=== PATIENT | female | born 1960 | race Two or more races ===

== ENCOUNTER 2017-09-16 08:01 | Emergency (ER) | payer OTHER ==
[~2017-09-16] VITALS: Ht 170.2 cm; Wt 113.4 kg
[~2017-09-16 08:01] MED LIST: ADVAIR 2501 DISK W/1 IH; ALBUTEROL17 GM IH; COUMADIN5 MG PO; COZAAR; DIAZEPAM10 MG PO; FOLIC ACID0.4 MG PO; LAXIS; LEVOXIL; METFORMIN; METFORMIN HCL500 MG PO; MICARDIS20 MG PO; MICARDIS80 MG PO; MULTI VITA-BE0.25 MG PO; ORPH100T PO; PERCOCET 5/321 UDTAB PO; PROVENTIL0.5 ML/2.5 IH; SINGULAIR 10MG10 MG PO; SINTROID; ULTRACET PO; [UNRECOGNIZED DRUG - OTHER]; [UNRECOGNIZED DRUG - OTHER]
[2017-09-16] MEDS ORDERED: ULTRAM50 MG PO (11:56)
[2017-09-16] MEDS ORDERED: NORFLEX100MG PO (11:56)
[2017-09-16] MEDS ORDERED: ZITHROMAX TRI-500 MG PO (11:56)
[2017-09-16] MEDS ORDERED: TUSSI PRES-B L120 M1 PO (11:56)
== END 2017-09-16 11:52 | disposition home or self-care (01) ==
LOC: ER 08:01
DX: B34.9 Viral infection, unspecified (principal); J11.1 Influenza due to unidentified influenza virus with other respiratory manifestations

== ENCOUNTER 2017-12-01 07:34 | Emergency (ER) | payer OTHER ==
[~2017-12-01] VITALS: Ht 170.2 cm; Wt 108.9 kg
[~2017-12-01 07:34] MED LIST changes: +NORFLEX100MG PO; +TUSSI PRES-B L120 M1 PO; +ULTRAM50 MG PO; +ZITHROMAX TRI-500 MG PO
== END 2017-12-01 11:29 | disposition home or self-care (01) ==
LOC: ER 07:34
DX: B34.9 Viral infection, unspecified (principal); J45.998 Other asthma

== ENCOUNTER 2018-09-17 08:15 | Inpatient (IN) | payer OTHER ==
[~2018-09-17] VITALS: Ht 167.6 cm; Wt 108.0 kg
--- NOTE | 2018-09-17 08:30 | NUR ---
PTE REFIERE DIFICULTAD RESPIRATORIO SE TRASLA PTE AL AREA DE ASMA Y SE PRESENTA A LA DRA COOLEY, Y SE NOTIFICA A TERAPIA RESPIRATORIA.
--- NOTE | 2018-09-17 08:32 | NUR ---
PACIENTE ALERTA Y ORIENTADA X3. SE ORIENTA SOBRE TX Y PROCEDIMIENTO A REALIZAR Y REFIERE ENTENDER. MIS. TAYLOR ADMINISTRA MEDICAMENTO RADHA ORDEN MEDICA. SE REALIZA MUESTRAS DE LABORATORIO BAJO MEDIDAS ASEPTICAS. CANALIZACION PATENTE Y JOHN DE EDEMA Y ERITEMA. SE MANTIENE BAJO OBSERVACION POR CAMBIOS SIGNIFICATIVOS. PERSONAL DE TERAPIA RESPIRATORIA OFRECE LAS MISMAS Y REALIZA ABG.
== END 2018-09-21 13:57 | disposition home or self-care (01) | DRG 977 ==
LOC: ER 08:15 → MEDJ 18:53
PROVIDERS: ADMIT Internal Medicine
PROC: 4A033R1 Measurement of Arterial Saturation, Peripheral, Percutaneous Approach (ICD-10-PCS; principal; 2018-09-17)
PROC: 3E0F7GC Introduction of Other Therapeutic Substance into Respiratory Tract, Via Natural or Artificial Opening (ICD-10-PCS; 2018-09-17)
PROC: 8E0ZXY6 Isolation (ICD-10-PCS; 2018-09-18)
DX: B20 Human immunodeficiency virus [HIV] disease (principal); J45.902 Unspecified asthma with status asthmaticus; J44.1 Chronic obstructive pulmonary disease with (acute) exacerbation; E03.8 Other specified hypothyroidism; J11.1 Influenza due to unidentified influenza virus with other respiratory manifestations; E11.9 Type 2 diabetes mellitus without complications

== ENCOUNTER → 2018-10-12 | Emergency (ER) | payer OTHER ==
[~2018-10-12] VITALS: Ht 170.2 cm; Wt 108.0 kg
[~2018-10-12] MED LIST changes: +COZAAR100 MG PO; +LEVO-T112 MCG PO; +NEURONTIN800 MG PO
== END | disposition left against medical advice (07) ==
LOC: ER 18:02
DX: J45.998 Other asthma (principal); J11.1 Influenza due to unidentified influenza virus with other respiratory manifestations

== ENCOUNTER → 2018-11-06 | Outpatient (CLI) | payer OTHER | END | disposition home or self-care (01) | LOC: MRI 07:10 | DX: K80.50 Calculus of bile duct without cholangitis or cholecystitis without obstruction (principal) ==

== ENCOUNTER 2018-11-10 07:07 | Outpatient (CLI) | payer OTHER | END 2018-11-10 07:41 | disposition home or self-care (01) | LOC: MRI 07:07 → TOM 07:07 → MRI 07:41 | DX: K80.50 Calculus of bile duct without cholangitis or cholecystitis without obstruction (principal) | CPT/HCPCS: 74181 ==

== ENCOUNTER 2018-12-15 07:32 | Outpatient (CLI) | payer OTHER | END 2018-12-15 08:59 | disposition home or self-care (01) | LOC: SONOGRAMA 07:32 | DX: D73.4 Cyst of spleen (principal) ==

== ENCOUNTER 2019-09-15 12:26 | Emergency (ER) | payer OTHER ==
[~2019-09-15] VITALS: Ht 170.2 cm; Wt 108.9 kg
[2019-09-15] MEDS ORDERED: XANAX XR2 MG (13:23)
== END 2019-09-15 18:07 | disposition home or self-care (01) ==
LOC: ER 12:26
DX: I80.12 Phlebitis and thrombophlebitis of left femoral vein (principal); I80.222 Phlebitis and thrombophlebitis of left popliteal vein; I87.2 Venous insufficiency (chronic) (peripheral); M79.605 Pain in left leg

== ENCOUNTER 2020-07-23 04:00 | Emergency (ER) | payer OTHER ==
[~2020-07-23] VITALS: Ht 170.2 cm; Wt 117.9 kg
[~2020-07-23 04:00] MED LIST changes: +XANAX XR2 MG
[2020-07-23] MEDS ORDERED: ODEFSEY TABLET1 EACH (04:16)
[2020-07-23] MEDS ORDERED: VISTARIL50 MG PO (04:49)
== END 2020-07-23 05:15 | disposition home or self-care (01) ==
LOC: ER 04:00
DX: F43.0 Acute stress reaction (principal); R07.89 Other chest pain; R00.2 Palpitations

== ENCOUNTER 2021-05-04 09:26 | Emergency (ER) | payer OTHER ==
[~2021-05-04] VITALS: Ht 170.2 cm; Wt 117.9 kg
[~2021-05-04 09:26] MED LIST changes: +ODEFSEY TABLET1 EACH; +VISTARIL50 MG PO
[2021-05-04] MEDS ORDERED: LIPITOR40 M1 PO (09:40)
[2021-05-04] MEDS ORDERED: PLAVIX75 MG (09:40)
[2021-05-04] MEDS ORDERED: ADULT ASPIRIN81 MG PO (09:42)
== END 2021-05-04 12:54 | disposition home or self-care (01) ==
LOC: ER 09:26
DX: R04.0 Epistaxis (principal); R53.1 Weakness; R51.9 Headache, unspecified

== ENCOUNTER 2022-08-06 05:56 | Day surgery (SDC) | payer OTHER ==
[~2022-08-06 05:56] MED LIST changes: +ADULT ASPIRIN81 MG PO; +LIPITOR40 M1 PO; +PLAVIX75 MG
== END 2022-08-06 11:10 | disposition home or self-care (01) ==
LOC: AMB-ENDOS 05:56
PROVIDERS: ATTEND Internal Medicine Gastroenterology
DX: Z86.010 Personal history of colon polyps (principal)

== ENCOUNTER 2022-08-16 09:49 | Outpatient (CLI) | payer OTHER | END 2022-08-16 09:53 | disposition home or self-care (01) | LOC: LAB 09:49 | PROVIDERS: ATTEND Internal Medicine Gastroenterology | DX: Z11.52 Encounter for screening for COVID-19 (principal); Z20.822 Contact with and (suspected) exposure to COVID-19; Z20.828 Contact with and (suspected) exposure to other viral communicable diseases ==

== ENCOUNTER 2022-09-03 05:30 | Day surgery (SDC) | payer OTHER | END 2022-09-03 14:20 | disposition home or self-care (01) | LOC: AMB-ENDOS 05:30 | PROVIDERS: ATTEND Internal Medicine Gastroenterology | DX: Z86.010 Personal history of colon polyps (principal); R19.5 Other fecal abnormalities; Z20.822 Contact with and (suspected) exposure to COVID-19 ==